=== PATIENT | male | born 1945 | race Caucasian/White ===

== ENCOUNTER 2019-03-31 11:53 | Observation (INO) ==
[2019-03-31] MEDS ORDERED: Ipratropium/Albuterol Neb 3 ML ONE ×2 (13:08→13:21)
[2019-03-31] MEDS ORDERED: methylPREDNISolone 125 MG/2 ML VIAL ONE (13:34)
[2019-03-31] MEDS ORDERED: methylPREDNISolone 125 MG/2 ML VIAL IVP ONE (13:39)
[2019-03-31] MEDS ORDERED: Nitroglycerin 0.4 MG TAB.SUBL SL ONE (17:15)
[2019-04-01] MEDS ORDERED: Ketorolac 15 MG/ML VIAL IVP PRN
[2019-04-01] MEDS ORDERED: *HR* HYDROcodone/Acet 5/325 mg TABLET PO PRN
[2019-04-01] MEDS ORDERED: Nitroglycerin 0.4 MG TAB.SUBL SL PRN
[2019-04-01] MEDS ORDERED: Acetaminophen 325 MG TABLET PO SCH
[2019-04-01 00:50] LABS: Basophils % 0.2 %; Hematocrit 41.7 % (37.5-50.1); Hemoglobin 13.6 g/dL (12.9-16.9); Immature Granulocytes % 0.4 % (0-4); Lymphocytes # 0.5 K/mcL (0.6-4.6); Lymphocytes % 8.6 %; Mean Corpuscular HGB Conc 32.6 g/dL (31.6-35.5); Mean Corpuscular Hemoglobin 28.7 pg (28.0-33.3); Monocytes # 0.1 K/mcL (0.0-1.3); Monocytes % 1.8 %; Neutrophils # 4.9 K/mcL (1.6-8.9); Platelet Count 173 K/mcL (140-400); Red Blood Count 4.74 M/mcL (4.19-5.50); Red Cell Distribution Width 14.7 % (11.5-14.5); White Blood Count 5.5 K/mcL (4.3-11.1)
[2019-04-01 01:08] LABS: BUN/Creatinine Ratio 24 (6-26); Blood Urea Nitrogen 22 mg/dL (8-23); C-Reactive Protein < 5 mg/L (Less than 10); Carbon Dioxide 24 mEq/L (23-29); Chloride 108 mEq/L (98-107); Glucose 203 mg/dL (70-105); Magnesium 1.8 mg/dL (1.6-2.6); Osmolality,Calculated 295 (280-300); Potassium 3.9 mEq/L (3.5-5.1); Sodium 138 mEq/L (136-145); eGFR For African Americans > 60 (> 60); eGFR For Non-African Americans > 60 (> 60)
[2019-04-01 01:42] LABS: Activated Partial Thrombo Time 34.5 Seconds (26.0-36.0); INR 1.1; Prothrombin Time 12.1 Seconds (9.4-12.1)
[2019-04-01 01:44] LABS: Basophils # 0.1 K/mcL (0.0-0.2); Basophils % 1.2 %; Eosinophils # 0.1 K/mcL (0.0-0.6); Hematocrit 45.4 % (37.5-50.1); Hemoglobin 14.4 g/dL (12.9-16.9); Immature Granulocytes % 0.2 % (0-4); Lymphocytes # 1.2 K/mcL (0.6-4.6); Lymphocytes % 24.1 %; Mean Corpuscular HGB Conc 31.7 g/dL (31.6-35.5); Mean Corpuscular Hemoglobin 28.2 pg (28.0-33.3); Mean Platelet Volume 10.8 fL (9.4-12.4); Monocytes # 0.5 K/mcL (0.0-1.3); Monocytes % 9.9 %; Neutrophils # 3.1 K/mcL (1.6-8.9); Platelet Count 164 K/mcL (140-400); Segmented Neutrophils % 62.6 %; White Blood Count 4.9 K/mcL (4.3-11.1)
[2019-04-01 01:58] LABS: Bilirubin,Urine Small (Negative); Blood,Urine Negative (Negative); Clarity,Urine Clear (Clear); Color,Urine Dark Yellow (Yellow); Glucose,Urine (UA) Normal (Normal); Ketones,Urine Negative (Negative); Leukocyte Esterase,Urine Negative (Negative); Nitrite,Urine Negative (Negative); PH,Urine 5.5 pH Units (5.0-8.0); Protein,Urine Negative (Neg-Trace); Specific Gravity,Urine > 1.030 (1.010-1.025); Urobilinogen,Urine Normal (Normal)
[2019-04-01 03:22] LABS: BUN/Creatinine Ratio 19 (6-26); Blood Urea Nitrogen 20 mg/dL (8-23); Calcium 8.9 mg/dL (8.6-10.3); Carbon Dioxide 26 mEq/L (23-29); Chloride 108 mEq/L (98-107); Glucose 93 mg/dL (70-105); Magnesium 1.7 mg/dL (1.6-2.6); Osmolality,Calculated 294 (280-300); Potassium 3.7 mEq/L (3.5-5.1); Sodium 141 mEq/L (136-145); Troponin I < 0.03 ng/mL (< 0.04); eGFR For African Americans > 60 (> 60); eGFR For Non-African Americans > 60 (> 60)
[2019-04-01] MEDS: Acetaminophen 325 MG TABLET PO PRN ×2 (05:04→16:11)
[2019-04-01] MEDS: Nitroglycerin 1 INCH/GM PACKET TP SCH ×3 (05:18→12:18)
[2019-04-01] MEDS: Aspirin 81 MG TAB.CHEW PO SCH (07:49)
[2019-04-01] MEDS: Ipratropium/Albuterol Neb 3 ML IH PRN ×4 (07:56→19:46)
[2019-04-01] MEDS: Nicotine 21 MG PATCH.TD24 TD SCH (10:26)
[2019-04-02] MEDS: Ipratropium/Albuterol Neb 3 ML IH PRN ×3 (04:23→15:14)
[2019-04-02] MEDS: Nitroglycerin 1 INCH/GM PACKET TP SCH ×2 (05:13→11:34)
[2019-04-02] MEDS: Acetaminophen 325 MG TABLET PO PRN ×2 (06:05→12:31)
[2019-04-02] MEDS ORDERED: Regadenoson 0.4 MG/5 ML SYRINGE IVP ONE (06:36)
[2019-04-02 06:58] LABS: Hematocrit 41.5 % (37.5-50.1); Hemoglobin 13.3 g/dL (12.9-16.9); Mean Corpuscular Hemoglobin 28.4 pg (28.0-33.3); Mean Corpuscular Volume 88.5 fL (83.0-100.0); Mean Platelet Volume 11.2 fL (9.4-12.4); Platelet Count 154 K/mcL (140-400); Red Blood Count 4.69 M/mcL (4.19-5.50); Red Cell Distribution Width 15.1 % (11.5-14.5); White Blood Count 4.6 K/mcL (4.3-11.1)
[2019-04-02 07:19] LABS: BUN/Creatinine Ratio 24 (6-26); Blood Urea Nitrogen 27 mg/dL (8-23); Calcium 8.5 mg/dL (8.6-10.3); Carbon Dioxide 29 mEq/L (23-29); Chloride 107 mEq/L (98-107); Glucose 87 mg/dL (70-105); Magnesium 1.8 mg/dL (1.6-2.6); Osmolality,Calculated 298 (280-300); Sodium 142 mEq/L (136-145); eGFR For African Americans > 60 (> 60); eGFR For Non-African Americans > 60 (> 60)
[2019-04-02] MEDS: Aspirin 81 MG TAB.CHEW PO SCH (09:54)
[2019-04-02] MEDS: Nicotine 21 MG PATCH.TD24 TD SCH (09:57)
[2019-04-02] MEDS ORDERED: hydrALAZINE 10 MG TABLET PO PRN (14:53)
[2019-04-03] MEDS: Acetaminophen 325 MG TABLET PO PRN ×2 (03:15→12:07)
[2019-04-03] MEDS: Nitroglycerin 1 INCH/GM PACKET TP SCH ×2 (05:35→11:05)
[2019-04-03] MEDS: Lisinopril 20 MG TABLET PO SCH (07:40)
[2019-04-03] MEDS: Nicotine 21 MG PATCH.TD24 TD SCH ×2 (07:40→21:23)
[2019-04-03] MEDS: Aspirin 81 MG TAB.CHEW PO SCH (07:40)
[2019-04-03] MEDS: Ipratropium/Albuterol Neb 3 ML IH PRN (21:37)
[2019-04-04] MEDS: Acetaminophen 325 MG TABLET PO PRN ×2 (04:33→14:34)
[2019-04-04] MEDS: Nitroglycerin 1 INCH/GM PACKET TP SCH ×2 (05:14→14:22)
[2019-04-04] MEDS: Aspirin 81 MG TAB.CHEW PO SCH (08:19)
[2019-04-04] MEDS: Lisinopril 20 MG TABLET PO SCH (08:19)
[2019-04-04] MEDS: Nicotine 21 MG PATCH.TD24 TD SCH (08:20)
[2019-04-04 15:23] VITALS: BP 127/78
== END 2019-04-04 18:40 | disposition home or self-care (01) ==
LOC: 3BNU 11:53 → EMEROOARM 11:53 → SUATTDRO 17:55 → 3BNU 18:37
PROVIDERS: ADMIT Student in an Organized Health Care Education/Training Program; ATTEND Internal Medicine